=== PATIENT | female | born 1955 | race African-American/Black ===

== ENCOUNTER 2019-12-17 13:50 | Emergency (ER) | payer OTHER ==
[~2019-12-17] VITALS: Ht 157.5 cm; Wt 86.2 kg
[~2019-12-17 13:50] MED LIST: ADVIL100 M2 PO; ALBUTEROL INHAL17 GM IH; ALEVE220 MG PO; BENZONATATE100 MG PO; CHERATUSSIN DA480 ML PO; FIORICET 50-321 EACH PO; IBUPROFEN 200200 M1 PO; IBUPROFEN 600600 M1 PO; LEVAQUIN 500 M500 M2 PO; LEVAQUIN 500 M500 MG PO; NAPROSYN250 MG PO; NAPROSYN500 MG PO; NOHOMEMEDICATIONS; NORCO 5-325 TA1 EACH PO; OMEPRAZOLE20 MG PO; PREDNISONE 10 M10 M1 PO; PROAIR HFA8.5 GM INH; PROVENTIL HFA6.7 G1 INH; TESSALON PERLE100 MG PO; VENTOLIN HFA 1818 GM INH; ZPAK PO
[2019-12-17 14:17] LABS: ABSOLUTE NEUTROPHILS 2.5 thou/uL (1.4-8.2); BASOPHILS 0.9 % (0.0-2.0); EOSINOPHILS 14.8 % (0.0-3.0); HEMATOCRIT 41.9 % (37.0-47.0); HEMOGLOBIN 13.7 gm/dL (12.0-15.0); MCHC 32.8 g/dL (28.0-37.0); MCV 88.6 fL (80.0-100.0); MONOCYTES 7.3 % (1.0-8.0); PLATELET COUNT 338 thou/uL (150-400); RBC 4.73 mil/uL (4.20-5.00); RDW 13.6 % (10.5-14.5); WBC 5.8 thou/uL (4.0-11.0)
[2019-12-17 14:22] LABS: ANION GAP 9 mmol/L (7-16); BUN 12 mg/dL (7-18); CALCIUM 9.8 mg/dL (8.5-10.1); CHLORIDE 102 mmol/L (98-107); CO2 28 mmol/L (21-32); CREATININE 0.9 mg/dL (0.6-1.0); GLUCOSE 179 mg/dL (74-106); POTASSIUM 3.6 mmol/L (3.5-5.1); SODIUM 139 mmol/L (136-145)
[2019-12-17 14:30] LABS: TROPONIN-I <0.06 ng/mL (<0.06)
[2019-12-17] MEDS ORDERED: PROTONIX40 M2 PO (15:20)
[2019-12-17 15:34] VITALS: BP 131/78
--- NOTE | 2019-12-18 08:02 | EKG ---
[facility] [place] [address] ELECTROCARDIOGRAM REPORT Name: HARI RAM [id number] Admission: 12/17/19 Attend Phys: Discharge: 12/17/19 Date of : 53 Report #: [id number] THIS REPORT FOR: cc: EVI - Kiya family physician/PCP EVI - Kiya family physician/PCP Drake Funk MD [facility] THIS REPORT FOR: //name// [facility] ED Test Date: 2019-12-17 Test Time: 13:52:41 Pat Name: HARI RAM Department: Room: Gender: F Environmental Services Supervisor: camilo kiran : 1955 Requested By: Gaetano Wilkinson Order Number: [id number] MD: Drake Funk Measurements Intervals [place] Rate: 92 P: 77 OR: 220 QRS: -25 QRSD: 77 T: 80 QT: 456 QTc: 565 Interpretive Statements Sinus rhythm Multiple ventricular premature complexes Prolonged OR interval Borderline left axis deviation Nonspecific repol abnormality Prolonged QT interval Compared to ECG 05/26/2015 13:04:14 Ventricular premature complex(es) now present Prolonged QT interval now present Electronically Signed On 12-18-2019 8:01:14 DEVELOPER PROGRAMMER by Drake Funk [email or web address] <ELECTRONICALLY SIGNED> By: Drake Funk MD, FAC 12/18/19 0801 1352 1352 Drake Funk MD, FAC /EPI
== END 2019-12-17 15:34 | disposition home or self-care (01) ==
LOC: ER 13:50
PROVIDERS: Emergency Medicine
DX: R07.89 Other chest pain (principal); I10 Essential (primary) hypertension; K21.9 Gastro-esophageal reflux disease without esophagitis; F17.210 Nicotine dependence, cigarettes, uncomplicated; Z90.710 Acquired absence of both cervix and uterus; Z88.0 Allergy status to penicillin; Z88.8 Allergy status to other drugs, medicaments and biological substances

== ENCOUNTER 2021-02-22 14:34 | Emergency (ER) | payer OTHER ==
[~2021-02-22] VITALS: Ht 157.5 cm; Wt 90.3 kg
[~2021-02-22 14:34] MED LIST changes: +PROTONIX40 M2 PO
[2021-02-22 15:40] LABS: ABSOLUTE NEUTROPHILS 2.7 thou/uL (1.4-8.2); BASOPHILS 0.8 % (0.0-2.0); EOSINOPHILS 18.4 % (0.0-3.0); HEMATOCRIT 43.2 % (37.0-47.0); LYMPHOCYTES 28.3 % (24.0-44.0); MCH 28.7 pg (26.0-34.0); MCHC 32.3 g/dL (28.0-37.0); MONOCYTES 8.1 % (1.0-8.0); PLATELET COUNT 382 thou/uL (150-400); POLYS 44.4 % (36.0-66.0); RBC 4.86 mil/uL (4.20-5.00); RDW 14.2 % (10.5-14.5); WBC 6.1 thou/uL (4.0-11.0)
[2021-02-22 15:49] LABS: ANION GAP 14 mmol/L (7-16); BUN 13 mg/dL (7-18); CALCIUM 9.6 mg/dL (8.5-10.1); CHLORIDE 107 mmol/L (98-107); CO2 29 mmol/L (21-32); CREATININE 1.1 mg/dL (0.6-1.0); GLUCOSE 109 mg/dL (74-106); POTASSIUM 4.1 mmol/L (3.5-5.1); SODIUM 150 mmol/L (136-145)
[2021-02-22 16:01] LABS: ALBUMIN 3.2 g/dL (3.4-5.0); LIPASE 65 U/L (73-393); SGOT 11 U/L (15-37); SGPT 16 U/L (14-59); TOTAL BILIRUBIN 0.6 mg/dL (0.2-1.0); TOTAL PROTEIN 7.3 g/dL (6.4-8.2); TROPONIN-I <0.06 ng/mL (<0.06)
[2021-02-22] MEDS ORDERED: FAMOTIDINE40 MG PO (19:50)
[2021-02-22 20:07] VITALS: BP 150/80
--- NOTE | 2021-02-23 16:00 | EKG ---
[address] [place] [address] ELECTROCARDIOGRAM REPORT Name: HARI RAM Room #: DEP [facility]#: [id number] Admission: 02/22/21 Attend Phys: Discharge: 02/22/21 Date of : 53 Report #: [id number] [facility] ED Test Date: 2021-02-22 Test Time: 14:42:24 Pat Name: HARI RAM Department: Room: Gender: F Frame And Scrap Crusher: RADHA : 1955 Requested By: Razia Paula Order Number: [id number] MD: Michael Diaz Measurements Intervals [place] Rate: 81 P: 60 [place]: 185 QRS: -45 QRSD: 86 T: 36 QT: 376 QTc: 437 Interpretive Statements Sinus rhythm Multiform ventricular premature complexes Inferior infarct, old Compared to ECG 12/17/2019 13:52:41 Myocardial infarct finding now present First degree AV block no longer present Early repolarization no longer present Prolonged QT interval no longer present Electronically Signed On 02-23-2021 16:00:28 CDT by Michael Diaz [email or web address] <ELECTRONICALLY SIGNED> By: Michael Diaz MD, [facility] 02/23/21 1600 1442 1442 Michael Diaz MD, [facility] /EPI
== END 2021-02-22 20:08 | disposition home or self-care (01) ==
LOC: ER 14:34
PROVIDERS: Emergency Medicine
DX: R10.13 Epigastric pain (principal); R07.89 Other chest pain; F17.210 Nicotine dependence, cigarettes, uncomplicated; K21.9 Gastro-esophageal reflux disease without esophagitis; Z90.710 Acquired absence of both cervix and uterus